=== PATIENT | male | born 1955 | race Caucasian/White ===

== ENCOUNTER 2019-11-02 06:16 | Day surgery (SDC) | payer BC ==
[~2019-11-02] VITALS: Ht 172.7 cm; Wt 76.4 kg
[~2019-11-02 06:16] MED LIST: ASPIR 8181 MG PO; CYCL10 PO; LOSARTAN-HCTZ1 EACH PO; NAPR500 PO; RXCYCL10 PO
== END 2019-11-02 08:54 | disposition home or self-care (01) ==
LOC: ORSCSDS 06:16
PROVIDERS: Podiatrist Foot & Ankle Surgery
PROC: 0JBN0ZZ Excision of Right Lower Leg Subcutaneous Tissue and Fascia, Open Approach (ICD-10-PCS; principal; 2019-11-02 07:30)
DX: M25.871 Other specified joint disorders, right ankle and foot (principal); D36.13 Benign neoplasm of peripheral nerves and autonomic nervous system of lower limb, including hip; I10 Essential (primary) hypertension; Z79.899 Other long term (current) drug therapy
CPT/HCPCS: 88305; 88342; J0171; J2250; J2704; J3010; J3370; J7120

== ENCOUNTER 2020-12-26 06:56 | Day surgery (SDC) | payer BC, OTHER ==
[~2020-12-26] VITALS: Ht 172.7 cm; Wt 73.6 kg
== END 2020-12-26 09:00 | disposition home or self-care (01) ==
LOC: ORSCSDS 06:56
PROVIDERS: Internal Medicine Gastroenterology
PROC: 0DBN8ZX Excision of Sigmoid Colon, Via Natural or Artificial Opening Endoscopic, Diagnostic (ICD-10-PCS; principal; 2020-12-26 08:00)
DX: Z12.11 Encounter for screening for malignant neoplasm of colon (principal); D12.5 Benign neoplasm of sigmoid colon; K57.30 Diverticulosis of large intestine without perforation or abscess without bleeding; K64.8 Other hemorrhoids; I10 Essential (primary) hypertension; E78.00 Pure hypercholesterolemia, unspecified; Z79.82 Long term (current) use of aspirin
CPT/HCPCS: 88305; A9270; J0330; J0461; J2405; J2704; J7120

== ENCOUNTER 2024-05-14 10:03 | Day surgery (SDC) | payer BC ==
[~2024-05-14] VITALS: Ht 172.7 cm; Wt 70.4 kg
[~2024-05-14 10:03] MED LIST changes: +Lactated Ringer's 1,000 ML IV ONE; +propofoL 50 ML IV ONE
[2024-05-14] MEDS ORDERED: LOSA50 (10:17)
[2024-05-14] MEDS ORDERED: SILD50TA (10:17)
[2024-05-14] MEDS ORDERED: HYDCOR2.5C (10:18)
[2024-05-14] MEDS ORDERED: Lactated Ringer's 1,000 ML IV ONE (11:01)
[2024-05-14] MEDS ORDERED: Ondansetron HCl 2 MG / ML 2ML Vial ONE (12:11)
[2024-05-14 12:49] VITALS: BP 111/78
== END 2024-05-14 12:34 | disposition home or self-care (01) ==
LOC: ORSCSDS 10:03
PROVIDERS: Internal Medicine Gastroenterology
PROC: 0DJD8ZZ Inspection of Lower Intestinal Tract, Via Natural or Artificial Opening Endoscopic (ICD-10-PCS; principal; 2024-05-14 11:15)
DX: Z12.11 Encounter for screening for malignant neoplasm of colon (principal); K57.30 Diverticulosis of large intestine without perforation or abscess without bleeding; I10 Essential (primary) hypertension; Z79.82 Long term (current) use of aspirin; Z79.899 Other long term (current) drug therapy
CPT/HCPCS: J2405; J2704; J7120